=== PATIENT | male | born 1985 | race African-American/Black ===

== ENCOUNTER 2017-05-29 03:21 | Emergency (ER) | payer BC, OTHER ==
[2017-05-29 03:38] VITALS: BP 123/79; PULSE 80; RESP 18; TEMP 98.5
--- NOTE | 2017-05-29 04:14 | ED ---
General Adult HPI - General Chief complaint: Skin/Abscess/Foreign Body Stated complaint: Poss abscess Time Seen by Provider: 05/29/17 03:40 Source: patient, RN notes reviewed, old records reviewed Mode of arrival: ambulatory Limitations: no limitations - History of Present Illness Initial comments: 32-year-old male presents for pain and swelling in his right back. Patient initially noticed a small pimple which progressively enlarged over the course of the week. Denies fever or chills. Patient has had abscess in his axilla previously. No history diabetes. No history of IV drug use. Patient has no other complaints. Denies pain with defecation. - Related Data Previous Rx's Medication Instructions Recorded Sulfamethox-Tmp 800-160Mg [Bactrim 1 tab PO Q12HR #28 tab 05/29/17 DS 800-160 mg] Allergies Allergy/AdvReac Type Severity Reaction Status Date / Time No Known Allergies Allergy Verified 05/29/17 03:38 Review of Systems ROS Statement: Those systems with pertinent positive or pertinent negative responses have been documented in the HPI. ROS Other: All systems not noted in ROS Statement are negative. Past Medical History Past Medical History: No Reported History History of Any Multi-Drug Resistant Organisms: None Reported Past Surgical History: No Surgical Hx Reported Past Psychological History: No Psychological Hx Reported Smoking Status: Current every day smoker Past Alcohol Use History: Occasional Past Drug Use History: None Reported, Marijuana General Exam Limitations: no limitations General appearance: alert, in no apparent distress Head exam: Present: atraumatic, normocephalic Eye exam: Present: normal appearance, PERRL ENT exam: Present: normal exam Neck exam: Present: normal inspection. Absent: tenderness, meningismus Respiratory exam: Present: normal lung sounds bilaterally. Absent: respiratory distress Cardiovascular Exam: Present: regular rate, normal rhythm GI/Abdominal exam: Present: soft. Absent: distended, tenderness Rectal exam: Present: tenderness, other (Right gluteal abscess, this is approximately 16 cm from the anus. No anal tenderness. Minimal surrounding cellulitis, 2 cm of central fluctuance.) Extremities exam: Present: normal inspection, normal capillary refill. Absent: pedal edema Neurological exam: Present: alert, oriented X3 Psychiatric exam: Present: normal affect, normal mood Skin exam: Present: warm, dry, intact. Absent: cyanosis, diaphoretic Course Vital Signs 05/29/17 03:35 Temperature 98.5 F Pulse Rate 80 Respiratory 18 Rate Blood Pressure 123/79 O2 Sat by Pulse 95 Oximetry Procedures - Incision & Drainage Consent Obtained: verbal consent Time Out Performed?: Yes Site: buttock I&D Cleaning Method: Betadine Sterile Field Used?: Yes Scalpel Used: #11 I&D Drainage Obtained: Pus, Blood Packing: Plain Culture Obtained?: Yes Patient Tolerated Procedure: well Medical Decision Making - Medical Decision Making 32-year-old male presenting with right gluteal abscess. Abscess approximately 2 cm central fluctuance with surrounding induration and minimal cellulitis. No concern for perirectal abscess. This is prepped with Betadine, and incised with an 11 blade scalpel. A significant amount of purulent material was expressed. This is sent for culture. Packing is applied. Patient is instructed to follow-up with primary care physician for wound evaluation or return to emergency department with worsening pain swelling or development of fever or pain with defecation. Disposition Clinical Impression: Gluteal abscess Disposition: HOME SELF-CARE Condition: Good Instructions: Abscess Incision and Drainage (ED), Abscess (ED) Prescriptions: Sulfamethox-Tmp 800-160Mg [Bactrim DS 800-160 mg] 1 tab PO Q12HR #28 tab Referrals: None,Stated [Primary Care Provider] - 1-2 days Rosaline Henry MD [REFERRING] - 1-2 days Time of Disposition: 04:14
== END 2017-05-29 04:21 | disposition home or self-care (01) ==
LOC: EC 03:21
DX: L02.31 Cutaneous abscess of buttock (principal); F17.200 Nicotine dependence, unspecified, uncomplicated
CPT/HCPCS: 10060; 87070; 87205; 99284

== ENCOUNTER 2017-11-12 21:46 | Emergency (ER) | payer BC, OTHER ==
[2017-11-12] MEDS ORDERED: SODIUM CHLORIDE 0.9% 1,000 ML IV STA (22:09)
[2017-11-12 22:28] LABS: Basophils % (A) 0 %; Eosinophils # (A) 0.4 k/uL (0-0.7); Eosinophils % (A) 6 %; HCT 41.7 % (39.0-53.0); HGB 14.8 gm/dL (13.0-17.5); Lymphocytes # (A) 2.3 k/uL (1.0-4.8); Lymphocytes % (A) 34 %; MCH 27.5 pg (25.0-35.0); MCHC 35.5 g/dL (31.0-37.0); MCV 77.6 fL (80.0-100.0); Mean Platelet Volume 7.1; Monocytes # (A) 0.5 k/uL (0-1.0); Monocytes % (A) 7 %; Neutrophils # (A) 3.6 k/uL (1.3-7.7); Neutrophils % (A) 52 %; Platelet Count 234 k/uL (150-450); RBC 5.37 m/uL (4.30-5.90); RDW 13.6 % (11.5-15.5); WBC 6.9 k/uL (3.8-10.6)
[2017-11-12 22:54] LABS: ALT 29 U/L (21-72); AST 24 U/L (17-59); Albumin 4.3 g/dL (3.5-5.0); Alkaline Phosphatase 107 U/L (38-126); Anion Gap 10 mmol/L; Blood Urea Nitrogen 18 mg/dL (9-20); Calcium 9.2 mg/dL (8.4-10.2); Carbon Dioxide 25 mmol/L (22-30); Chloride 104 mmol/L (98-107); Glucose 95 mg/dL (74-99); Potassium 4.5 mmol/L (3.5-5.1); Sodium 139 mmol/L (137-145); Total Bilirubin 0.3 mg/dL (0.2-1.3); Total Protein 6.9 g/dL (6.3-8.2)
--- NOTE | 2017-11-12 22:58 | ED ---
General Adult HPI - General Chief complaint: Dizziness Stated complaint: Poss Dehydration Time Seen by Provider: 11/12/17 21:53 Source: patient, RN notes reviewed Mode of arrival: ambulatory Limitations: no limitations - History of Present Illness Initial comments: This a 32-year-old male presents emergency Department chief complaint of possible dehydration. 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 Patient states that he did not have any dizziness he is felt that he may pass out. 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 He states that he cannot quench his thirst and constant since and he's been urinating dark urine. Patient reports no chest pain or shortness breath no nausea vomiting diarrhea constipation. Patient has no focal weakness. Patient states she's had symptoms like this in the past with heat exhaustion. - Related Data Previous Rx's Medication Instructions Recorded Sulfamethox-Tmp 800-160Mg [Bactrim 1 tab PO Q12HR #28 tab 05/29/17 DS 800-160 mg] Allergies Allergy/AdvReac Type Severity Reaction Status Date / Time No Known Allergies Allergy Verified 11/12/17 21:50 Review of Systems ROS Statement: Those systems with pertinent positive or pertinent negative responses have been documented in the HPI. ROS Other: All systems not noted in ROS Statement are negative. Past Medical History Past Medical History: No Reported History History of Any Multi-Drug Resistant Organisms: None Reported Past Surgical History: No Surgical Hx Reported Past Psychological History: No Psychological Hx Reported Smoking Status: Current every day smoker Past Alcohol Use History: Occasional Past Drug Use History: Marijuana General Exam Limitations: no limitations General appearance: alert, in no apparent distress Head exam: Present: atraumatic, normocephalic, normal inspection Eye exam: Present: normal appearance, PERRL, EOMI. Absent: scleral icterus, conjunctival injection, periorbital swelling ENT exam: Present: normal oropharynx, mucous membranes dry Neck exam: Present: normal inspection, full ROM. Absent: tenderness, meningismus, lymphadenopathy Respiratory exam: Present: normal lung sounds bilaterally. Absent: respiratory distress, wheezes, rales, rhonchi, stridor Cardiovascular Exam: Present: regular rate, normal rhythm, normal heart sounds. Absent: systolic murmur, diastolic murmur, rubs, gallop, clicks GI/Abdominal exam: Present: soft, normal bowel sounds. Absent: distended, tenderness, guarding, rebound, rigid Neurological exam: Present: alert, oriented X3, CN II-XII intact Skin exam: Present: warm, dry, intact, normal color. Absent: rash Course Vital Signs 11/12/17 11/12/17 21:48 23:00 Temperature 98.5 F Pulse Rate 89 74 Respiratory 20 16 Rate Blood Pressure 132/81 113/64 O2 Sat by Pulse 97 Oximetry EKG Findings - EKG Comments: EKG Findings:: EKG performed at 22:03 normal sinus rhythm with a rate of 77 GA 140 QRS 78 QT/QTC 350/396 Medical Decision Making - Medical Decision Making 32-year-old male presented for feeling lightheaded and possible dehydration. Patient has trace ketones patient was given fluids and had lab work which was unremarkable. Patient states he feels improved at this time. Patient will be discharged advised to increase fluid intake and return for any worsening symptoms. - Lab Data Result diagrams: 11/12/17 22:19 11/12/17 22:19 Lab Results 11/12/17 11/12/17 11/12/17 Range/Units 22:19 22:19 22:57 WBC 6.9 (3.8-10.6) k/uL RBC 5.37 (4.30-5.90) m/uL Hgb 14.8 (13.0-17.5) gm/dL Hct 41.7 (39.0-53.0) % MCV 77.6 L (80.0-100.0) fL MCH 27.5 (25.0-35.0) pg MCHC 35.5 (31.0-37.0) g/dL RDW 13.6 (11.5-15.5) % Plt Count 234 (150-450) k/uL Neutrophils % 52 % Lymphocytes % 34 % Monocytes % 7 % Eosinophils % 6 % Basophils % 0 % Neutrophils # 3.6 (1.3-7.7) k/uL Lymphocytes # 2.3 (1.0-4.8) k/uL Monocytes # 0.5 (0-1.0) k/uL Eosinophils # 0.4 (0-0.7) k/uL Basophils # 0.0 (0-0.2) k/uL Sodium 139 (137-145) mmol/L Potassium 4.5 (3.5-5.1) mmol/L Chloride 104 (98-107) mmol/L Carbon Dioxide 25 (22-30) mmol/L Anion Gap 10 mmol/L BUN 18 (9-20) mg/dL Creatinine 1.20 (0.66-1.25) mg/dL Est GFR (CKD-EPI)AfAm >90 (>60 ml/min/1.73 sqM) Est GFR (CKD-EPI)NonAf 81 (>60 ml/min/1.73 sqM) Glucose 95 (74-99) mg/dL Calcium 9.2 (8.4-10.2) mg/dL Total Bilirubin 0.3 (0.2-1.3) mg/dL AST 24 (17-59) U/L ALT 29 (21-72) U/L Alkaline Phosphatase 107 (38-126) U/L Total Protein 6.9 (6.3-8.2) g/dL Albumin 4.3 (3.5-5.0) g/dL Urine Color Yellow Urine Appearance Clear (Clear) Urine pH 6.0 (5.0-8.0) Ur Specific [place] 1.025 (1.001-1.035) Urine Protein Negative (Negative) Urine Glucose (UA) Negative (Negative) Urine Ketones Trace H (Negative) Urine Blood Negative (Negative) Urine Nitrite Negative (Negative) Urine Bilirubin Negative (Negative) Urine Urobilinogen 2.0 (<2.0) mg/dL Ur Leukocyte Esterase Negative (Negative) Disposition Clinical Impression: Heat exhaustion, Dehydration Disposition: HOME SELF-CARE Condition: Stable Instructions: Heat Exhaustion (ED) Additional Instructions: Please return to the Emergency Department if symptoms worsen or any other concerns. Is patient prescribed a controlled substance at d/c from ED?: No Referrals: Zee Rivera MD [STAFF PHYSICIAN] - 1-2 days Time of Disposition: 23:21
[2017-11-12 23:01] VITALS: RESP 16
[2017-11-12 23:16] LABS: Appearance,Urine Clear (Clear); Bilirubin,Urine Negative (Negative); Blood,Urine Negative (Negative); Color,Urine Yellow; Glucose,Urine (UA) Negative (Negative); Ketones,Urine Trace (Negative); Leukocyte Esterase,Urine Negative (Negative); Nitrite,Urine Negative (Negative); Protein,Urine Negative (Negative); Specific Gravity,Urine 1.025 (1.001-1.035)
[2017-11-12 23:34] VITALS: BP 113/69; PULSE 70; TEMP 98.4
== END 2017-11-12 23:35 | disposition home or self-care (01) ==
LOC: EC 21:46
DX: T67.5XXA Heat exhaustion, unspecified, initial encounter (principal); E86.0 Dehydration; F17.200 Nicotine dependence, unspecified, uncomplicated; X30.XXXA Exposure to excessive natural heat, initial encounter; Y92.69 Other specified industrial and construction area as the place of occurrence of the external cause; Y99.0 Civilian activity done for income or pay
CPT/HCPCS: 36415; 80053; 81003; 85025; 93005; 96360; 99284

== ENCOUNTER 2017-12-22 21:17 | Emergency (ER) | payer BC, OTHER ==
[2017-12-22 22:11] VITALS: BP 116/76; PULSE 56; RESP 18; TEMP 98.3
== END 2017-12-22 22:38 ==
LOC: EC 21:17
DX: Z02.9 Encounter for administrative examinations, unspecified (principal)

== ENCOUNTER 2018-01-10 11:23 | Emergency (ER) | payer BC ==
[2018-01-10 11:59] VITALS: BP 114/77; PULSE 67; RESP 17; TEMP 98.2
[2018-01-10] MEDS ORDERED: predniSONE 20 MG TAB PO STA (12:20)
--- NOTE | 2018-01-10 12:33 | ED ---
General Adult HPI - General Chief complaint: Skin/Abscess/Foreign Body Stated complaint: Bee sting/arm Source: patient Mode of arrival: ambulatory Limitations: no limitations - History of Present Illness Initial comments: This a 32-year-old male no past medical history who presents today for chief complaint of bee sting to the left upper arm. Patient states around 8 PM last night he was stung by a bee once, he really noticed pain at the location of the stating, he cannot feel any palpable stinger. We will this morning he noticed swelling of the left upper arm and redness. He was concerned he is having reaction to bee sting. Patient denies any shorts breath, stridor, wheezes, difficulty breathing, chest pain, diarrhea, nausea or vomiting, fever, chills, night sweats or malaise. Patient presents emergency Department stated VS stable , appearing in no acute distress. - Related Data Previous Rx's Medication Instructions Recorded diphenhydrAMINE [Benadryl] 50 mg PO HS PRN 5 Days #5 capsule 01/10/18 predniSONE 20 mg PO DAILY 3 Days #3 tab 01/10/18 Allergies Allergy/AdvReac Type Severity Reaction Status Date / Time No Known Allergies Allergy Verified 01/10/18 12:20 Review of Systems ROS Statement: Those systems with pertinent positive or pertinent negative responses have been documented in the HPI. ROS Other: All systems not noted in ROS Statement are negative. Constitutional: Denies: fever, chills, night sweats Eyes: Denies: vision change ENT: Denies: hearing loss Respiratory: Denies: cough, dyspnea, wheezes, stridor Cardiovascular: Denies: chest pain, palpitations, dyspnea on exertion Gastrointestinal: Denies: abdominal pain, nausea, vomiting, diarrhea Genitourinary: Denies: urgency, dysuria Musculoskeletal: Reports: myalgia (at site of sting). Denies: back pain Skin: Reports: as per HPI, lesions. Denies: rash Neurological: Denies: headache, weakness, numbness, paresthesias, confusion Past Medical History Past Medical History: No Reported History History of Any Multi-Drug Resistant Organisms: None Reported Past Surgical History: No Surgical Hx Reported Past Psychological History: No Psychological Hx Reported Smoking Status: Current every day smoker Past Alcohol Use History: Occasional Past Drug Use History: None Reported, Marijuana General Exam - General Exam Comments Initial Comments: General: The patient is awake and alert, in no distress, and does not appear acutely ill. Eye: Pupils are equal, round and reactive to light, extra-ocular movements are intact. No nystagmus. There is normal conjunctiva bilaterally. No signs of icterus. Ears, nose, mouth and throat: There are moist mucous membranes and no oral lesions. Cardiovascular: There is a regular rate and rhythm. No murmur, rub or gallop is appreciated. Respiratory: Lungs are clear to auscultation, respirations are non-labored, breath sounds are equal. No wheezes, stridor, rales, or rhonchi. Gastrointestinal: Soft, non-distended, non-tender abdomen without masses or organomegaly noted. There is no rebound or guarding present. Musculoskeletal: Normal ROM of the UE b/l. Sensation intact of UE b/l. Radial pulses equal bilaterally 2+. Neurological: A&O x 3. CN II-XII intact, There are no obvious motor or sensory deficits. Coordination appears grossly intact. Speech is normal. Skin: Skin is warm and dry and no rashes. Breaking the skin at site of sting left upper extremity anterior surface, with surrounding erythema, mild induration and soft tissue swelling about 6 cm in a circular pattern around sting. Tender to palpation. Psychiatric: Cooperative, appropriate mood & affect, normal judgment. Limitations: no limitations Course Vital Signs 01/10/18 11:57 Temperature 98.2 F Pulse Rate 67 Respiratory 17 Rate Blood Pressure 114/77 O2 Sat by Pulse 100 Oximetry Medical Decision Making - Medical Decision Making 32m with bee sting to left upper arm. Upon physical examination there appears to be a local reaction, no signs of systemic reaction at this time. Pt was given one dose of prednisone here, and d/c with a RX for 20mg prednisone x3 days and benadryl 50mg qhs x5 days for itching as needed. Case discussed with Dr. Alan prior to d/c who agrees with impression and plan. Pt discharged in stable condition. Pt educated on the signs and symptoms of secondary infection as well as signs of systemic response, pt agreed to return if these arise. Disposition Clinical Impression: Bee sting reaction Disposition: HOME SELF-CARE Condition: Good Instructions: Insect Bite or Sting (ED) Additional Instructions: Please use medication as discussed. Please follow-up with family doctor in the next 2 days of symptoms have not improved. Please return to emergency room if the symptoms increase or worsen or for any other concerns as discussed, including signs of infection. Prescriptions: diphenhydrAMINE [Benadryl] 50 mg PO HS PRN 5 Days #5 capsule PRN Reason: Itching predniSONE 20 mg PO DAILY 3 Days #3 tab Is patient prescribed a controlled substance at d/c from ED?: No Referrals: None,Stated [Primary Care Provider] - 1-2 days Time of Disposition: 12:33
== END 2018-01-10 12:40 | disposition home or self-care (01) ==
LOC: EC 11:23
DX: T63.441A Toxic effect of venom of bees, accidental (unintentional), initial encounter (principal); F17.200 Nicotine dependence, unspecified, uncomplicated
CPT/HCPCS: 99282

== ENCOUNTER 2019-02-05 03:53 | Emergency (ER) | payer OTHER ==
[2019-02-05 03:56] VITALS: RESP 18
[2019-02-05] MEDS ORDERED: SODIUM CHLORIDE 0.9% 1,000 ML IV STA (04:07)
[2019-02-05] MEDS ORDERED: ONDANSETRON 4 MG/2 ML VIAL IVP STA (04:07)
--- NOTE | 2019-02-05 04:10 | ED ---
Nausea/Vomiting/Diarrhea HPI - General Chief complaint: Nausea/Vomiting/Diarrhea Stated complaint: Vomiting, Diarrhea, chest pain Time Seen by Provider: 02/05/19 04:07 Source: patient Mode of arrival: ambulatory Limitations: no limitations - History of Present Illness Initial comments: Marek is a previously healthy 34-year-old male presents the emergency department today for evaluation of acute onset of nausea, vomiting, diarrhea and a persistent feeling of heartburn. Patient reports that he was at work this evening when symptoms came on. Patient denies any abdominal pain though he does have some cramping with the vomiting. He reports that since the vomiting he continues to feels that he is having acid reflux and can feel burning and half foul taste in his throat though he is no longer vomiting. Patient states is concerned that he may be getting sicker may have gotten food poisoning. - Related Data Previous Rx's Medication Instructions Recorded diphenhydrAMINE [Benadryl] 50 mg PO HS PRN 5 Days #5 capsule 01/10/18 predniSONE 20 mg PO DAILY 3 Days #3 tab 01/10/18 Ondansetron [Zofran ODT] 4 mg PO Q8HR #12 tab 02/05/19 Allergies Allergy/AdvReac Type Severity Reaction Status Date / Time No Known Allergies Allergy Verified 01/10/18 12:20 Review of Systems ROS Statement: Those systems with pertinent positive or pertinent negative responses have been documented in the HPI. ROS Other: All systems not noted in ROS Statement are negative. Past Medical History Past Medical History: No Reported History History of Any Multi-Drug Resistant Organisms: None Reported Past Surgical History: No Surgical Hx Reported Past Psychological History: No Psychological Hx Reported Smoking Status: Current every day smoker Past Alcohol Use History: Occasional Past Drug Use History: None Reported, Marijuana General Exam - General Exam Comments Initial Comments: Physical Exam GENERAL: Patient is well-developed and well-nourished. Patient is nontoxic and well- hydrated and is in no distress. HENT: Normocephalic, Atraumatic. EYES: PERRL, EOMI PULMONARY: Unlabored respirations. No audible rales rhonchi or wheezing was noted. CARDIOVASCULAR: There is a regular rate and rhythm without any murmurs gallops or rubs. ABDOMEN: Soft and nontender with normal bowel sounds. SKIN: Skin is clear with no lesions or rashes and otherwise unremarkable. : Deferred NEUROLOGIC: Patient is alert and oriented x3. Moving all extremities spontaneously MUSCULOSKELETAL: Normal extremities with adequate strength and full range of motion. No lower extremity swelling or edema. No calf tenderness. PSYCHIATRIC: Normal psychiatric evaluation. Limitations: no limitations Course Vital Signs 02/05/19 02/05/19 03:54 06:05 Temperature 97.3 F L 97.8 F Pulse Rate 73 66 Respiratory 18 18 Rate Blood Pressure 138/93 124/83 O2 Sat by Pulse 100 99 Oximetry Medical Decision Making - Medical Decision Making She was seen and evaluated, history is obtained from patient Patient presenting with nausea vomiting diarrhea and persistent feeling of acid taste in his mouth and heartburn Labs were obtained and resulted with a mildly elevated lipase, patient denies any significant drinking or recent binge drinking. No history of pancreatitis. Patient was reevaluated after IV fluids and Zofran reports his nausea has improved however he continues to feel acid reflux, Protonix and GI cocktail were ordered. Shoulder provided with a work note for 2 days of rest. Advised to advance diet easily. Refrain from any alcohol or spicy foods. Make sure he stays hydrated. Return parameters were discussed patient is discharged home in stable condition. - Lab Data Result diagrams: 02/05/19 04:28 02/05/19 04:28 Lab Results 02/05/19 02/05/19 02/05/19 Range/Units 04:28 04:28 04:28 WBC 9.1 (3.8-10.6) k/uL RBC 5.67 (4.30-5.90) m/uL Hgb 15.1 (13.0-17.5) gm/dL Hct 44.5 (39.0-53.0) % MCV 78.4 L (80.0-100.0) fL MCH 26.6 (25.0-35.0) pg MCHC 33.9 (31.0-37.0) g/dL RDW 13.4 (11.5-15.5) % Plt Count 237 (150-450) k/uL Neutrophils % 59 % Lymphocytes % 27 % Monocytes % 6 % Eosinophils % 5 % Basophils % 2 % Neutrophils # 5.4 (1.3-7.7) k/uL Lymphocytes # 2.5 (1.0-4.8) k/uL Monocytes # 0.5 (0-1.0) k/uL Eosinophils # 0.4 (0-0.7) k/uL Basophils # 0.2 (0-0.2) k/uL Sodium 139 (137-145) mmol/L Potassium 4.1 (3.5-5.1) mmol/L Chloride 103 (98-107) mmol/L Carbon Dioxide 26 (22-30) mmol/L Anion Gap 10 mmol/L BUN 14 (9-20) mg/dL Creatinine 1.00 (0.66-1.25) mg/dL Est GFR (CKD-EPI)AfAm >90 (>60 ml/min/1.73 sqM) Est GFR (CKD-EPI)NonAf >90 (>60 ml/min/1.73 sqM) Glucose 102 H (74-99) mg/dL Calcium 9.7 (8.4-10.2) mg/dL Total Bilirubin 0.7 (0.2-1.3) mg/dL AST 29 (17-59) U/L ALT 24 (21-72) U/L Alkaline Phosphatase 97 (38-126) U/L Total Protein 7.4 (6.3-8.2) g/dL Albumin 4.5 (3.5-5.0) g/dL Lipase 619 H (23-300) U/L Urine Color Yellow Urine Appearance Clear (Clear) Urine pH 6.0 (5.0-8.0) Ur Specific [place] 1.029 (1.001-1.035) Urine Protein Trace H (Negative) Urine Glucose (UA) Negative (Negative) Urine Ketones Negative (Negative) Urine Blood Negative (Negative) Urine Nitrite Negative (Negative) Urine Bilirubin Negative (Negative) Urine Urobilinogen <2.0 (<2.0) mg/dL Ur Leukocyte Esterase Negative (Negative) Disposition Clinical Impression: Nausea and vomiting Disposition: HOME SELF-CARE Condition: Fair Instructions (If sedation given, give patient instructions): Acute Nausea and Vomiting (ED) Prescriptions: Ondansetron [Zofran ODT] 4 mg PO Q8HR #12 tab Is patient prescribed a controlled substance at d/c from ED?: No Referrals: None,Stated [Primary Care Provider] - 1-2 days
[2019-02-05 04:51] LABS: Appearance,Urine Clear (Clear); Basophils # (A) 0.2 k/uL (0-0.2); Basophils % (A) 2 %; Bilirubin,Urine Negative (Negative); Blood,Urine Negative (Negative); Color,Urine Yellow; Eosinophils # (A) 0.4 k/uL (0-0.7); Eosinophils % (A) 5 %; Glucose,Urine (UA) Negative (Negative); HCT 44.5 % (39.0-53.0); HGB 15.1 gm/dL (13.0-17.5); Ketones,Urine Negative (Negative); Leukocyte Esterase,Urine Negative (Negative); Lymphocytes # (A) 2.5 k/uL (1.0-4.8); Lymphocytes % (A) 27 %; MCH 26.6 pg (25.0-35.0); MCHC 33.9 g/dL (31.0-37.0); MCV 78.4 fL (80.0-100.0); Mean Platelet Volume 6.8; Monocytes # (A) 0.5 k/uL (0-1.0); Monocytes % (A) 6 %; Neutrophils # (A) 5.4 k/uL (1.3-7.7); Neutrophils % (A) 59 %; Nitrite,Urine Negative (Negative); Platelet Count 237 k/uL (150-450); Protein,Urine Trace (Negative); RBC 5.67 m/uL (4.30-5.90); RDW 13.4 % (11.5-15.5); Specific Gravity,Urine 1.029 (1.001-1.035); Urobilinogen,Urine <2.0 mg/dL (<2.0); WBC 9.1 k/uL (3.8-10.6)
[2019-02-05 05:05] LABS: ALT 24 U/L (21-72); AST 29 U/L (17-59); African American GFR (CKD) >90 (>60 ml/min/1.73 sqM); Albumin 4.5 g/dL (3.5-5.0); Alkaline Phosphatase 97 U/L (38-126); Anion Gap 10 mmol/L; Blood Urea Nitrogen 14 mg/dL (9-20); Calcium 9.7 mg/dL (8.4-10.2); Carbon Dioxide 26 mmol/L (22-30); Chloride 103 mmol/L (98-107); Glucose 102 mg/dL (74-99); Potassium 4.1 mmol/L (3.5-5.1); Sodium 139 mmol/L (137-145); Total Bilirubin 0.7 mg/dL (0.2-1.3); Total Protein 7.4 g/dL (6.3-8.2)
[2019-02-05] MEDS ORDERED: MAG HYDROX/AL HYDROX/SIMETH 30 ML, HYOSCYAMINE ELIXIR 10 ML, CIMETIDINE HCL 300 MG, LID... PO STA ×4 (05:15)
[2019-02-05] MEDS ORDERED: PANTOPRAZOLE 40 MG/10 ML VIAL IVP STA (05:15)
--- NOTE | 2019-02-05 05:17 | XR ---
EXAM: XR Abdomen, 1 View CLINICAL HISTORY: ITS.REASON XR Reason: abdominal pain TECHNIQUE: Frontal supine view of the abdomen/pelvis. COMPARISON: No relevant prior studies available. FINDINGS: Gastrointestinal tract: Unremarkable. No dilation. Bones/joints: No acute fracture. No dislocation. IMPRESSION: No acute findings.
[2019-02-05] MEDS ORDERED: ONDANSETRON 4 MG ODT STARTER PACK 2 TAB BTL PO STA (05:21)
[2019-02-05 06:06] VITALS: BP 124/83; PULSE 66; TEMP 97.8
== END 2019-02-05 06:06 | disposition home or self-care (01) ==
LOC: EC 03:53
DX: R11.2 Nausea with vomiting, unspecified (principal); R19.7 Diarrhea, unspecified; R12 Heartburn; R74.8 Abnormal levels of other serum enzymes; K21.9 Gastro-esophageal reflux disease without esophagitis; F17.200 Nicotine dependence, unspecified, uncomplicated
CPT/HCPCS: 36415; 80053; 83690; 85025; 81003; 74018; 99284; 96374; 96375; 96361 ×2; J2405; S0119; C9113

== ENCOUNTER 2019-02-27 12:54 | Emergency (ER) | payer OTHER ==
[2019-02-27 12:59] VITALS: BP 144/99; PULSE 90; RESP 18; TEMP 98.5
--- NOTE | 2019-02-27 13:39 | ED ---
ENT HPI - General Chief complaint: ENT Stated complaint: ear pain Time Seen by Provider: 02/27/19 13:10 Source: patient Mode of arrival: ambulatory Limitations: no limitations - History of Present Illness Initial comments: Patient is a 34-year-old male presenting to the emergency Department with complaints of left ear pain 3 days. Patient states he was playing softball 3 days ago when he got hit in the left side of the head with a softball. Patient denies LOC. Patient has not been having a headache except for a mild one that started today. Patient states his left ear this has been increasing in pain since the incident. Patient states it hurts to move the outside of his ear and he feels like his hearing is slightly muffled. Patient denies any drainage from the ear. Patient denies any other trauma to his ear. Patient denies fever, chills, nausea, vomiting, blurry vision, lightheadedness. Patient has no other complaints at this time. Upon arrival to ER, vital signs are stable. - Related Data Previous Rx's Medication Instructions Recorded diphenhydrAMINE [Benadryl] 50 mg PO HS PRN 5 Days #5 capsule 01/10/18 predniSONE 20 mg PO DAILY 3 Days #3 tab 01/10/18 Ondansetron [Zofran ODT] 4 mg PO Q8HR #12 tab 02/05/19 Hktvojvn-Ozvzkkszm-Pf Otic 4 drops LEFT EAR QID 7 Days #1 02/27/19 [Cortisporin Otic Soln] bottle Allergies Allergy/AdvReac Type Severity Reaction Status Date / Time No Known Allergies Allergy Verified 02/27/19 12:59 Review of Systems ROS Statement: Those systems with pertinent positive or pertinent negative responses have been documented in the HPI. ROS Other: All systems not noted in ROS Statement are negative. Past Medical History Past Medical History: No Reported History History of Any Multi-Drug Resistant Organisms: None Reported Past Surgical History: No Surgical Hx Reported Past Psychological History: No Psychological Hx Reported Smoking Status: Current every day smoker Past Alcohol Use History: Occasional Past Drug Use History: Marijuana General Exam - General Exam Comments Initial Comments: GENERAL: Well-appearing, well-nourished and in no acute distress. HEAD: Atraumatic, normocephalic. EYES: Pupils equal round and reactive to light, extraocular movements intact, sclera anicteric, conjunctiva are normal. ENT: Left EAC is erythematous and swollen, TM is intact slightly erythematous. Pain with auricle movement. No Osorio sign. Right TM and EAC is normal. Nares patent, oropharynx clear without exudates. Moist mucous membranes. NECK: Normal range of motion, supple without lymphadenopathy or JVD. LUNGS: Breath sounds clear to auscultation bilaterally and equal. No wheezes rales or rhonchi. HEART: Regular rate and rhythm without murmurs, rubs or gallops. ABDOMEN: Soft, nontender, normoactive bowel sounds. No guarding, no rebound. No masses appreciated. : Deferred EXTREMITIES: Normal range of motion, no pitting or edema. No clubbing or cyanosis. NEUROLOGICAL: Cranial nerves II through XII grossly intact. Normal speech, normal gait. PSYCH: Normal mood, normal affect. SKIN: Warm, Dry, normal turgor, no rashes or lesions noted. Limitations: no limitations Course Vital Signs 02/27/19 12:56 Temperature 98.5 F Pulse Rate 90 Respiratory 18 Rate Blood Pressure 144/99 O2 Sat by Pulse 99 Oximetry Medical Decision Making - Medical Decision Making Patient is a 34-year-old male presenting with left ear pain 3 days. Patient was hit in the side of the head with a softball a few days ago and now having left ear pain as well as muffled hearing. Patient denies LOC, headaches, blurry vision, lightheadedness, nausea, vomiting. On exam patient's left EAC is erythematous and swollen, TM is intact, slightly erythematous. Patient has pain with auricle movement. Rest of exam is unremarkable. No concern for basal skull fracture. Patient will be started on antibiotic eardrops for otitis externa. Patient was given referral for ENT if symptoms do not improve. Patient is agreement with this plan of care. Patient is stable for discharge at this time. Return parameters were discussed with patient he verbalizes understanding. Case discussed with Dr. Long. Disposition Clinical Impression: Left otitis externa, Left ear pain Disposition: HOME SELF-CARE Condition: Stable Instructions (If sedation given, give patient instructions): Otitis Externa (ED) Additional Instructions: Please return to the Emergency Department if symptoms worsen or any other concerns. Follow-up with ENT if symptoms persist. Prescriptions: Vxjlazir-Mxepefyrm-Ec Otic [Cortisporin Otic Soln] 4 drops LEFT EAR QID 7 Days #1 bottle Is patient prescribed a controlled substance at d/c from ED?: No Referrals: None,Stated [Primary Care Provider] - 1-2 days
== END 2019-02-27 13:43 | disposition home or self-care (01) ==
LOC: EC 12:54
DX: H60.92 Unspecified otitis externa, left ear (principal); F17.200 Nicotine dependence, unspecified, uncomplicated; W21.07XA Struck by softball, initial encounter; Y93.64 Activity, baseball
CPT/HCPCS: 99282

== ENCOUNTER 2019-03-03 08:02 | Emergency (ER) | payer OTHER ==
[2019-03-03 08:06] VITALS: TEMP 98.2
[2019-03-03] MEDS ORDERED: NEOMYCIN-POLYMYXIN-HC (3.5-10,000-10 MG) OTIC DROPS 10 ML BTL LEFT EAR SCH (09:00)
--- NOTE | 2019-03-03 09:07 | ED ---
General Adult HPI - General Chief complaint: ENT Stated complaint: blood in ear-revisit Time Seen by Provider: 03/03/19 08:05 Source: patient, RN notes reviewed Mode of arrival: ambulatory Limitations: no limitations - History of Present Illness Initial comments: This is a 34-year-old male who presents emergency Department with left ear drainage and pain. Patient states there is a scant amount of blood when he put a Q-tip in but no other blood. Patient states he was in the emergency department a few days ago and was given antibiotics to take that he did not get the antibiotic prescription filled because he couldn't afford it. Patient states here pain is gotten worse and the drainage is gotten worse. Patient denies any other problems at this time. Patient denies any fever chills. - Related Data Home Medications Medication Instructions Recorded Confirmed Acetaminophen Tab [Tylenol Tab] 650 mg PO Q6H 03/03/19 03/03/19 Otc Swimmers Ear Drops 4 - 5 drops LEFT EAR Q4H 03/03/19 03/03/19 Allergies Allergy/AdvReac Type Severity Reaction Status Date / Time No Known Allergies Allergy Verified 03/03/19 08:27 Review of Systems ROS Statement: Those systems with pertinent positive or pertinent negative responses have been documented in the HPI. ROS Other: All systems not noted in ROS Statement are negative. Past Medical History Past Medical History: No Reported History History of Any Multi-Drug Resistant Organisms: None Reported Past Surgical History: No Surgical Hx Reported Past Psychological History: No Psychological Hx Reported Smoking Status: Current every day smoker Past Alcohol Use History: Occasional Past Drug Use History: Marijuana General Exam - General Exam Comments Initial Comments: GENERAL Patient is well-developed and well-nourished. Patient is in mild distress. EYES Patient's pupils are equal and round. Extraocular motion is intact EARS Left ear has drainage ear canal swollen unable to see the TM SKIN Unremarkable NEURO The patient is alert and oriented 3 PYSCH Patient has normal interpersonal interactions. MUSCULOSKELETAL All 4 times and full range of motion Limitations: no limitations Course Vital Signs 03/03/19 08:03 Temperature 98.2 F Pulse Rate 66 Respiratory 18 Rate Blood Pressure 132/84 O2 Sat by Pulse 99 Oximetry Medical Decision Making - Medical Decision Making I gave patient Cortisporin drops in the emergency department because he could not afford medicines. Disposition Clinical Impression: Otitis externa Disposition: HOME SELF-CARE Condition: Good Instructions (If sedation given, give patient instructions): Otitis Externa (ED) Is patient prescribed a controlled substance at d/c from ED?: No Referrals: Ian Wong MD [STAFF PHYSICIAN] - 1-2 days Time of Disposition: 09:06
[2019-03-03 09:24] VITALS: BP 130/76; PULSE 70; RESP 16
== END 2019-03-03 09:23 | disposition home or self-care (01) ==
LOC: EC 08:02
DX: H60.92 Unspecified otitis externa, left ear (principal); F17.200 Nicotine dependence, unspecified, uncomplicated; Z79.899 Other long term (current) drug therapy
CPT/HCPCS: 99282

== ENCOUNTER 2019-05-24 10:12 | Emergency (ER) | payer OTHER ==
[2019-05-24] MEDS ORDERED: ONDANSETRON 4 MG/2 ML VIAL IVP STA (10:50)
[2019-05-24] MEDS ORDERED: DICYCLOMINE 10 MG/ML 2 ML AMP IM STA (10:50)
[2019-05-24] MEDS ORDERED: SODIUM CHLORIDE 0.9% 1,000 ML IV STA (10:50)
[2019-05-24] MEDS ORDERED: PANTOPRAZOLE 40 MG/10 ML VIAL IVP STA (10:50)
--- NOTE | 2019-05-24 10:51 | ED ---
Abdominal Pain HPI - General Chief Complaint: Abdominal Pain Stated Complaint: abd pain Time Seen by Provider: 05/24/19 10:41 Source: patient Mode of arrival: ambulatory Limitations: no limitations - History of Present Illness Initial Comments: Patient is a 34-year-old male presenting to emergency Department with a chief complaint of nausea vomiting. Patient reports the symptoms began early this morning with continuous nausea and multiple episodes of nonbloody vomiting. Patient reports the symptoms are not related to oral intake. He also reports diffuse periumbilical pain that is not related to oral intake. She reports the pain is exacerbated during episodes of vomiting and alleviated at rest. Denies any fevers or chills. He does report having 1 alcoholic drink late last night. Denies chest pain shortness of breath back pain. Denies taking any other medications alleviate the symptoms. Denies any penile discharge, swelling, testicular swelling or tenderness. Denies diarrhea or constipation. Denies hematuria, hematochezia or melena. No previous history of abdominal surgeries. - Related Data Home Medications Medication Instructions Recorded Confirmed Acetaminophen Tab [Tylenol Tab] 650 mg PO Q6H 03/03/19 03/03/19 Otc Swimmers Ear Drops 4 - 5 drops LEFT EAR Q4H 03/03/19 03/03/19 Previous Rx's Medication Instructions Recorded Ondansetron Odt [Zofran Odt] 4 mg PO Q8HR PRN #10 tab 05/24/19 Allergies Allergy/AdvReac Type Severity Reaction Status Date / Time No Known Allergies Allergy Verified 05/24/19 10:35 Review of Systems ROS Statement: Those systems with pertinent positive or pertinent negative responses have been documented in the HPI. ROS Other: All systems not noted in ROS Statement are negative. Past Medical History Past Medical History: No Reported History History of Any Multi-Drug Resistant Organisms: None Reported Past Surgical History: No Surgical Hx Reported Past Psychological History: No Psychological Hx Reported Smoking Status: Current every day smoker Past Alcohol Use History: Occasional Past Drug Use History: Marijuana General Exam Limitations: no limitations General appearance: alert, in no apparent distress Head exam: Present: atraumatic, normocephalic, normal inspection Eye exam: Present: normal appearance, PERRL, EOMI Pupils: Present: normal accommodation ENT exam: Present: normal exam, normal oropharynx, mucous membranes moist Neck exam: Present: normal inspection Respiratory exam: Present: normal lung sounds bilaterally Cardiovascular Exam: Present: regular rate, normal rhythm, normal heart sounds GI/Abdominal exam: Present: soft, tenderness (Diffuse periumbilical tenderness). Absent: distended, guarding, rebound Extremities exam: Present: normal inspection, full ROM, normal capillary refill Back exam: Present: normal inspection, full ROM. Absent: tenderness, CVA tenderness (R), CVA tenderness (L) Neurological exam: Present: alert, oriented X3 Psychiatric exam: Present: normal affect, normal mood Skin exam: Present: warm, dry, intact, normal color Course Vital Signs 05/24/19 05/24/19 10:33 11:42 Temperature 98.7 F 97.1 F L Pulse Rate 85 56 L Respiratory 18 16 Rate Blood Pressure 121/79 107/62 O2 Sat by Pulse 99 100 Oximetry Medical Decision Making - Medical Decision Making patient is a 34-year-old male presenting to the emergency department with a chief complaint of nausea or vomiting.on exam patient does not have any abdominal tenderness. On initial evaluation patient did smell like marijuana. Patient had one drink last night. Patient was given fluids and antiemetics. Reevaluation patient reports improvement in symptoms. CBC CMP and UA are unremarkable. I suspect the patient possibly used marijuana which could've possibly caused the nausea vomiting episodes. Otherwise no signs of any acute pathologies. Strict return parameters were thoroughly discussed with patient was understanding and agreeable. Case discussed with physician. Patient was to follow with primary care. - Lab Data Result diagrams: 05/24/19 10:56 05/24/19 10:56 Lab Results 05/24/19 05/24/19 05/24/19 Range/Units 10:56 10:56 11:47 WBC 9.3 (3.8-10.6) k/uL RBC 6.23 H (4.30-5.90) m/uL Hgb 16.3 (13.0-17.5) gm/dL Hct 50.0 (39.0-53.0) % MCV 80.1 (80.0-100.0) fL MCH 26.2 (25.0-35.0) pg MCHC 32.7 (31.0-37.0) g/dL RDW 13.6 (11.5-15.5) % Plt Count 259 (150-450) k/uL Neutrophils % 77 % Lymphocytes % 12 % Monocytes % 6 % Eosinophils % 2 % Basophils % 2 % Neutrophils # 7.1 (1.3-7.7) k/uL Lymphocytes # 1.1 (1.0-4.8) k/uL Monocytes # 0.5 (0-1.0) k/uL Eosinophils # 0.2 (0-0.7) k/uL Basophils # 0.2 (0-0.2) k/uL Sodium 140 (137-145) mmol/L Potassium 4.5 (3.5-5.1) mmol/L Chloride 104 (98-107) mmol/L Carbon Dioxide 31 H (22-30) mmol/L Anion Gap 5 mmol/L BUN 16 (9-20) mg/dL Creatinine 1.06 (0.66-1.25) mg/dL Est GFR (CKD-EPI)AfAm >90 (>60 ml/min/1.73 sqM) Est GFR (CKD-EPI)NonAf >90 (>60 ml/min/1.73 sqM) Glucose 85 (74-99) mg/dL Calcium 9.9 (8.4-10.2) mg/dL Total Bilirubin 1.0 (0.2-1.3) mg/dL AST 35 (17-59) U/L ALT 33 (4-49) U/L Alkaline Phosphatase 76 (38-126) U/L Total Protein 7.7 (6.3-8.2) g/dL Albumin 4.8 (3.5-5.0) g/dL Amylase 65 (30-110) U/L Lipase 38 (23-300) U/L Urine Color Yellow Urine Appearance Clear (Clear) Urine pH 8.0 (5.0-8.0) Ur Specific Ulmer 1.024 (1.001-1.035) Urine Protein Trace H (Negative) Urine Glucose (UA) Negative (Negative) Urine Ketones Negative (Negative) Urine Blood Negative (Negative) Urine Nitrite Negative (Negative) Urine Bilirubin Negative (Negative) Urine Urobilinogen <2.0 (<2.0) mg/dL Ur Leukocyte Esterase Negative (Negative) Disposition Clinical Impression: Abdominal pain, Nausea & vomiting Disposition: HOME SELF-CARE Condition: Stable Instructions (If sedation given, give patient instructions): Abdominal Pain (ED) Additional Instructions: Please follow with primary care. Please return to emergency department if symptoms worsen. Prescriptions: Ondansetron Odt [Zofran Odt] 4 mg PO Q8HR PRN #10 tab PRN Reason: Nausea Is patient prescribed a controlled substance at d/c from ED?: No Referrals: None,Stated [Primary Care Provider] - 1-2 days Time of Disposition: 12:39
[2019-05-24 11:26] LABS: Basophils # (A) 0.2 k/uL (0-0.2); Basophils % (A) 2 %; Eosinophils # (A) 0.2 k/uL (0-0.7); Eosinophils % (A) 2 %; HGB 16.3 gm/dL (13.0-17.5); Lymphocytes # (A) 1.1 k/uL (1.0-4.8); Lymphocytes % (A) 12 %; MCH 26.2 pg (25.0-35.0); MCHC 32.7 g/dL (31.0-37.0); MCV 80.1 fL (80.0-100.0); Mean Platelet Volume 7.5; Monocytes # (A) 0.5 k/uL (0-1.0); Monocytes % (A) 6 %; Neutrophils # (A) 7.1 k/uL (1.3-7.7); Neutrophils % (A) 77 %; Platelet Count 259 k/uL (150-450); RBC 6.23 m/uL (4.30-5.90); RDW 13.6 % (11.5-15.5); WBC 9.3 k/uL (3.8-10.6)
[2019-05-24 11:33] LABS: ALT 33 U/L (4-49); AST 35 U/L (17-59); African American GFR (CKD) >90 (>60 ml/min/1.73 sqM); Albumin 4.8 g/dL (3.5-5.0); Alkaline Phosphatase 76 U/L (38-126); Amylase 65 U/L (30-110); Anion Gap 5 mmol/L; Blood Urea Nitrogen 16 mg/dL (9-20); Calcium 9.9 mg/dL (8.4-10.2); Carbon Dioxide 31 mmol/L (22-30); Chloride 104 mmol/L (98-107); Glucose 85 mg/dL (74-99); Non-African American GFR(CKD) >90 (>60 ml/min/1.73 sqM); Potassium 4.5 mmol/L (3.5-5.1); Sodium 140 mmol/L (137-145); Total Protein 7.7 g/dL (6.3-8.2)
[2019-05-24 11:45] VITALS: BP 107/62; PULSE 56; RESP 16; TEMP 97.1
[2019-05-24 11:57] LABS: Appearance,Urine Clear (Clear); Bilirubin,Urine Negative (Negative); Blood,Urine Negative (Negative); Color,Urine Yellow; Glucose,Urine (UA) Negative (Negative); Ketones,Urine Negative (Negative); Leukocyte Esterase,Urine Negative (Negative); Nitrite,Urine Negative (Negative); Protein,Urine Trace (Negative); Specific Gravity,Urine 1.024 (1.001-1.035); Urobilinogen,Urine <2.0 mg/dL (<2.0)
== END 2019-05-24 12:57 | disposition home or self-care (01) ==
LOC: EC 10:12
DX: R11.2 Nausea with vomiting, unspecified (principal); R10.33 Periumbilical pain; F17.200 Nicotine dependence, unspecified, uncomplicated
CPT/HCPCS: 36415; 80053; 82150; 83690; 85025; 81003; 99284; 96374; 96375; 96361; 96372; J0500; J2405; C9113

== ENCOUNTER 2020-10-15 00:49 | Emergency (ER) | payer OTHER ==
[2020-10-15 00:58] VITALS: TEMP 97.8
[2020-10-15] MEDS ORDERED: CEPHALEXIN 500MG STARTER PACK 4 CAP BTL PO STA (02:34)
[2020-10-15] MEDS ORDERED: CEPHALEXIN 500 MG CAP PO STA (02:34)
[2020-10-15] MEDS ORDERED: DIPH,PERTUS(ACELL)TETVAC-LF 0.5 ML VIAL IM ONE (02:34)
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
[2020-10-15 03:22] VITALS: BP 136/86; PULSE 89; RESP 18
== END 2020-10-15 02:30 | disposition home or self-care (01) ==
LOC: EC 00:49
DX: S01.81XA Laceration without foreign body of other part of head, initial encounter (principal); S51.811A Laceration without foreign body of right forearm, initial encounter; F17.200 Nicotine dependence, unspecified, uncomplicated; Y08.89XA Assault by other specified means, initial encounter
CPT/HCPCS: 90471; 90715; 99283